=== PATIENT | female | born 1970 | race Caucasian/White ===

== ENCOUNTER 2023-09-12 09:13 | Emergency (ER) | payer MEDICAID ==
[~2023-09-12] VITALS: Ht 160 cm; Wt 68.9 kg
[2023-09-12 09:27] VITALS: BP 141/68; TEMP 98.4; O2SAT 100
[2023-09-12] MEDS ORDERED: CLINDAMYCIN HCL 150 MG CAPSULE PO ONE (09:30)
[2023-09-12] MEDS ORDERED: CLINDAMYCIN HCL 150 MG CAPSULE ONE (09:37)
[2023-09-12] MEDS ORDERED: CLIN300C12 PO (09:46)
== END 2023-09-12 10:27 | disposition home or self-care (01) ==
LOC: ER 09:24
DX: L03.312 Cellulitis of back [any part except buttock and flank] (principal)